=== PATIENT | male | born 1965 ===

== ENCOUNTER 2023-07-02 16:49 | Emergency (ER) | payer SELFPAY ==
[~2023-07-02] VITALS: Ht 170.2 cm; Wt 61.4 kg
[2023-07-02 17:13] VITALS: BP 113/64; PULSE 120; RESP 20; TEMP 98.8
== END 2023-07-02 20:47 | disposition left against medical advice (07) ==
LOC: EMS 16:50
DX: M25.532 Pain in left wrist (principal); E11.9 Type 2 diabetes mellitus without complications; Z98.890 Other specified postprocedural states
CPT/HCPCS: 82962; 99282